=== PATIENT | male | born 1980 | race Caucasian/White ===

== ENCOUNTER 2019-07-27 19:30 | Emergency (ER) | payer BC ==
--- NOTE | 2019-07-27 19:47 | EDM.PDOC ---
ED HPI GENERAL MEDICAL PROBLEM - General Chief Complaint: Lower Extremity Injury/Pain Stated Complaint: INJURIED RIGHT FOOT POSSIBLY BROKEN Time Seen by Provider: 07/27/19 19:34 Source of Information: Reports: Patient History Limitations: Reports: No Limitations - History of Present Illness INITIAL COMMENTS - FREE TEXT/NARRATIVE: This is a 38-year-old male. He was helping a friend move furniture and apparently some furniture hit him in the back of the legs and he fell backwards. The same time his left foot was caught between the furniture and a mirror as he fell back his foot got mashed between the furniture in the mere. This happened around 2 or 3 this afternoon. He has swelling of the left foot on the dorsal forefoot area and has a difficult time bearing weight on his toes though he says he can walk on his heel. He states that his ankle is not injured at all is just all in his foot. He denies any other injury when he fell. 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: IBUPROFEN Left Feet Pain Score (Numeric/FACES): 7 - Related Data Allergies Allergy/AdvReac Type Severity Reaction Status Date / Time No Known Allergies Allergy Verified 07/27/19 19:36 Home Meds: Home Meds Hydrocodone/Acetaminophen [Hydrocodon-Acetaminophen 5-325] 1 each PO Q6H PRN # 15 tablet 07/27/19 [Rx] Past Medical History - Past Health History Medical/Surgical History: Denies Medical/Surgical History Social & Family History - Recreational Drug Use Recreational Drug Use: No Review of Systems - Review of Systems Review Of Systems: See Below Constitutional: Denies: Chills, Fever Eyes: Reports: No Symptoms Ears: Reports: No Symptoms Nose: Reports: No Symptoms Mouth/Throat: Reports: No Symptoms Respiratory: Reports: No Symptoms Cardiovascular: Reports: No Symptoms GI/Abdominal: Reports: No Symptoms Genitourinary: Reports: No Symptoms Musculoskeletal: Reports: Other (As per history of present illness) Skin: Reports: Bruising, Other (Left foot) Neurological: Reports: No Symptoms Psychiatric: Reports: No Symptoms ED EXAM, GENERAL - Physical Exam Exam: See Below Exam Limited By: No Limitations General Appearance: Alert, WD/WN, No Apparent Distress Eye Exam: Bilateral Eye: Normal Inspection Ears: Normal External Exam Nose: Normal Inspection Throat/Mouth: Normal Inspection, Normal Lips, Normal Voice, No Airway Compromise Head: Normocephalic Neck: Supple Respiratory/Chest: No Respiratory Distress Back Exam: Normal Inspection, Full Range of Motion Extremities: Other (Left foot has large bruising over the forefoot starting at the calcaneus area down the entire metatarsal and tarsal bone area all the lateral side up to the first metatarsal area. It does not involve the toes. He is able to wiggle his toes slightly and he is got feeling in each toe and good capillary refill. There is no other lower extremity trauma.) Neurological: Alert, Oriented Psychiatric: Normal Affect, Normal Mood Skin Exam: Warm, Dry ED TRAUMA EXTREMITY PROCEDURES - Splinting Left Lower Extremity Splint Site: left foot Pre-Procedure NV Status: Normal Post-Procedure NV Status: Normal Splint Material: Fiberglass Splint Design: Posterior Applied & Form Fitted By: Provider, Nurse Provider Post-Splint Application NV Check: NV Status Normal, Good Position Complications: No Progress/Comments: Patient tolerated the procedure well. Course - Vital Signs Last Recorded V/S: Last Vital Signs Temp 97.8 F 07/27/19 19:36 Pulse 70 07/27/19 19:36 Resp 15 07/27/19 19:36 BP 144/84 H 07/27/19 19:36 Pulse Ox 99 07/27/19 19:36 - Orders/Labs/Meds Orders: Active Orders 24 hr Category Date Time Status Foot Comp Min 3V Lt [CR] Stat Exams 07/27/19 19:43 Taken Durable Medical Equipment for Discharge [DME for Oth 07/27/19 21:11 Ordered Discharge] [COMM] Stat Departure - Departure Time of Disposition: 21:14 Disposition: Home, Self-Care 01 Condition: Fair Clinical Impression: Nondisplaced fracture of first left metatarsal bone Qualifiers: Encounter type: initial encounter Fracture type: closed Qualified Code(s): S92.315A - Nondisplaced fracture of first metatarsal bone, left foot, initial encounter for closed fracture Fracture of second metatarsal bone of left foot Qualifiers: Encounter type: initial encounter Fracture type: closed Fracture alignment: nondisplaced Qualified Code(s): S92.325A - Nondisplaced fracture of second metatarsal bone, left foot, initial encounter for closed fracture Fracture of third metatarsal bone of left foot Qualifiers: Encounter type: initial encounter Fracture type: closed Fracture alignment: nondisplaced Qualified Code(s): S92.335A - Nondisplaced fracture of third metatarsal bone, left foot, initial encounter for closed fracture Fracture of fourth metatarsal bone of left foot Qualifiers: Encounter type: initial encounter Fracture type: closed Fracture alignment: nondisplaced Qualified Code(s): S92.345A - Nondisplaced fracture of fourth metatarsal bone, left foot, initial encounter for closed fracture - Discharge Information *PRESCRIPTION DRUG MONITORING PROGRAM REVIEWED*: No *COPY OF PRESCRIPTION DRUG MONITORING REPORT IN PATIENT TIA: No Prescriptions: Hydrocodone/Acetaminophen [Hydrocodon-Acetaminophen 5-325] 1 each PO Q6H PRN # 15 tablet PRN Reason: Pain Instructions: Metatarsal Fracture Referrals: Kun Contreras MD [Physician] - Forms: ED Department Discharge, ED Return to Work/School Form Additional Instructions: Use the crutches at all times, do not put any weight on that left foot since if you displaced fractures it might require surgery, take the pain medications as needed, keep the left foot elevated as much as possible over the next 48 hours and use ice on and off to help with the swelling and the soreness, follow-up with Dr. Contreras by calling his office on Monday to get an appointment to be seen - My Orders Last 24 Hours: My Active Orders 07/27/19 19:43 Foot Comp Min 3V Lt [CR] Stat 07/27/19 21:11 Durable Medical Equipment for Discharge [DME for Discharge] [COMM] Stat - Assessment/Plan Last 24 Hours: My Active Orders 07/27/19 19:43 Foot Comp Min 3V Lt [CR] Stat 07/27/19 21:11 Durable Medical Equipment for Discharge [DME for Discharge] [COMM] Stat
--- NOTE | 2019-07-28 10:57 | CR ---
Left foot: Four views of the left foot were obtained. Comparison: No prior foot exam. Findings: Fracture is identified within the proximal shaft of the 2nd metatarsal. Fracture is identified within the corner base of the 4th metatarsal. 4th metatarsal fracture shows articular extension. Equivocal fracture within the base of the 2nd metatarsal. No additional fracture is seen. Soft tissue swelling is noted. Impression: 1. Metatarsal fractures as noted above. 2. Soft tissue swelling. Diagnostic code #3
== END 2019-07-27 21:36 | disposition home or self-care (01) ==
LOC: JD.ED 19:30
DX: S92.315A Nondisplaced fracture of first metatarsal bone, left foot, initial encounter for closed fracture (principal); S92.325A Nondisplaced fracture of second metatarsal bone, left foot, initial encounter for closed fracture; S92.335A Nondisplaced fracture of third metatarsal bone, left foot, initial encounter for closed fracture; S92.345A Nondisplaced fracture of fourth metatarsal bone, left foot, initial encounter for closed fracture; W18.09XA Striking against other object with subsequent fall, initial encounter; Y93.89 Activity, other specified
CPT/HCPCS: 29125; 73630-26-LT; 73630-LT; 99283; 99283-25